=== PATIENT | male | born 1985 | race Caucasian/White ===

== ENCOUNTER 2018-03-22 11:29 | Emergency (ER) | payer MEDICAID ==
[~2018-03-22] VITALS: Ht 180.3 cm; Wt 73.0 kg
[2018-03-22 11:41] VITALS: BP 122/84
[2018-03-22] MEDS ORDERED: TETanus/Pertussis (Acell)/Diphther VAC/PF (Tdap-Adult) 0.5ml syringe IM ONE (12:30)
[2018-03-22] MEDS ORDERED: ketorolac tromethamine 15mg/ml inj. IM ONE (12:50)
[2018-03-22] MEDS ORDERED: ondansetron 4mg rapidly disintigrating tab PO ONE (12:55)
[2018-03-22] MEDS ORDERED: HYDROcodone/acetaminophen 5mg/325mg tablet PO ONE (12:55)
[2018-03-22] MEDS ORDERED: IBUP-1986 PO (14:04)
[2018-03-22] MEDS ORDERED: HYDR-3965 PO (14:04)
== END 2018-03-22 14:16 | disposition left against medical advice (07) ==
LOC: ER 11:29
DX: S50.811A Abrasion of right forearm, initial encounter (principal); M25.531 Pain in right wrist; M79.89 Other specified soft tissue disorders; F17.200 Nicotine dependence, unspecified, uncomplicated; Z88.8 Allergy status to other drugs, medicaments and biological substances; Z79.899 Other long term (current) drug therapy; W19.XXXA Unspecified fall, initial encounter; Y93.89 Activity, other specified; Y92.89 Other specified places as the place of occurrence of the external cause; Y99.8 Other external cause status
CPT/HCPCS: 73090; 73130; 90471; 90715; 93971; 96372; 99284; J1885